=== PATIENT | female | born 1990 | race Caucasian/White ===

== ENCOUNTER 2017-01-11 06:37 | Inpatient (IN) | payer OTHER ==
[~2017-01-11] VITALS: Ht 170.2 cm; Wt 85.1 kg
--- NOTE | ~2017-01-11 | OR ---
PATIENT'S NAME: GERALDINE CUMMINGS [facility] AGE: 26 Y [address] ROOM: [place] [id number] LOCATION: BS ADMIT DATE: 01/11/2017 OR/Procedure Report DISCHARGE DATE: FAMILY PHYSICIAN: PHYSICIAN, NO ATTENDING PHYSICIAN: Rashi Marti SURGEON: Rashi Marti MD DIRECTOR GAME: None. DATE OF PROCEDURE: 01/11/2017 PREOPERATIVE DIAGNOSIS: Postdate intrauterine , successful induction of labor. POSTOPERATIVE DIAGNOSIS: Postdate intrauterine , successful induction of labor. PROCEDURE: Vaginal delivery, repair of perineal laceration. ANESTHESIA: Epidural. ESTIMATED BLOOD LOSS: 100 mL. CLINICAL INDICATION: Geraldine Cummings is a 26-year-old white female, 2, para 1, who is past postdates, was induced secondary to postdates. She was given Pitocin and labor epidural and artificial rupture of membranes. She would attain complete cervical dilatation and push effectively. FINDINGS: Delivery of a viable 7-pound 8-ounce male infant, score 10 at 1 minute and 10 at 5 minutes. umbilical, arterial cord blood gas is pending at the time of dictation. TECHNICAL PROCEDURES: The patient was left in the Labor and Delivery room, prepped and draped in the usual fashion. Labor epidural was sufficient for delivery. She would deliver a viable 7-pound 8-ounce male infant over an intact perineum. There was a nuchal cord. We delivered through the nuchal cord. Following delivery, the umbilical cord was doubly clamped, the intervening segment was cut, was handed off to the mother and later the awaiting nursing services. umbilical, arterial cord blood, and venous cord blood were obtained for blood gas analysis and routine studies respectively. Placenta was delivered spontaneously intact with 3 vessels. Exploration of the cervix and vaginal sidewalls noted them to be intact with the exception of the small second-degree midline perineal laceration. This was repaired using 3-0 Vicryl suture in a fashion similar to that of an episiotomy. The patient tolerated the procedure well and remained in Labor and Delivery room in good condition as did the . PATIENT'S NAME: GERALDINE CUMMINGS [facility] AGE: 26 Y [address] ROOM: [place] [id number] LOCATION: GOBS ADMIT DATE: 01/11/2017 OR/Procedure Report DISCHARGE DATE: FAMILY PHYSICIAN: INGA BAKER ATTENDING PHYSICIAN: Rashi Marti RASHI MARTI MD DHW/modl /[id number] d: 01/12/17 0135 t: 01/19/17 0739, OPERATIVE SUMMARY
[~2017-01-11 06:37] MED LIST: LEVOTHROID (SY50 MCG PO; PRENATAL 1+1)(P1 TAB PO; TUMS200 MG PO
[2017-01-11 07:45] LABS: BASOPHIL % 0.4 %; EOSINOPHIL # 0.3 K/uL (0.0-0.5); EOSINOPHIL % 2.5 %; HEMATOCRIT 34.7 % (33.0-46.0); HEMOGLOBIN 11.9 g/dL (11.0-15.0); IMMATURE GRANULOCYTE # 0.1 K/uL (0.0-0.3); IMMATURE GRANULOCYTE % 0.5 %; LYMPHOCYTE # 1.6 K/uL (0.8-4.0); LYMPHOCYTE % 14.4 %; MCH 29.5 pg (27.0-34.0); MCHC 34.3 gm/dL (32.0-36.5); MCV 85.9 fl (83.0-98.0); MONOCYTE % 8.7 %; MPV 10.8 fl (9.4-12.4); NEUTROPHIL # (ANC) 8.1 K/uL (1.8-7.8); NEUTROPHIL % 73.5 %; NRBC % 0 /100WBC (0-0.00); PLATELET COUNT 242 K/uL (150-450); RBC 4.04 M/uL (3.50-5.00); RDW-CV 13.8 % (11.9-14.6)
[2017-01-11 20:00] LABS: BICARBONATE 23.9 mmol/L (18.0-23.0); PCO2 50 mmHg (35-45); PO2 24 mmHg (80-90)
[2017-01-12 04:13] LABS: BASOPHIL # 0.1 K/uL (0.0-0.2); BASOPHIL % 0.6 %; EOSINOPHIL # 0.3 K/uL (0.0-0.5); EOSINOPHIL % 2.4 %; HEMATOCRIT 31.1 % (33.0-46.0); HEMOGLOBIN 10.5 g/dL (11.0-15.0); IMMATURE GRANULOCYTE # 0.1 K/uL (0.0-0.3); IMMATURE GRANULOCYTE % 0.6 %; LYMPHOCYTE # 2.4 K/uL (0.8-4.0); LYMPHOCYTE % 18.8 %; MCH 29.2 pg (27.0-34.0); MCHC 33.8 gm/dL (32.0-36.5); MCV 86.6 fl (83.0-98.0); MONOCYTE # 1.3 K/uL (0.0-1.0); MONOCYTE % 10.5 %; MPV 10.8 fl (9.4-12.4); NEUTROPHIL # (ANC) 8.6 K/uL (1.8-7.8); NEUTROPHIL % 67.1 %; NRBC % 0 /100WBC (0-0.00); PLATELET COUNT 209 K/uL (150-450); RBC 3.59 M/uL (3.50-5.00); RDW-CV 13.9 % (11.9-14.6); WBC 12.7 K/uL (4.0-11.0)
[2017-01-12] MEDS ORDERED: PERCOCET 5-3251 EACH PO (16:53)
== END 2017-01-12 21:35 | disposition disaster alternative care site (69) | DRG 775 ==
LOC: GOBM → GOBS 06:37 → GOBM 06:38 → GOBS 18:41
PROVIDERS: ADMIT Obstetrics & Gynecology
PROC: 3E0P7GC Introduction of Other Therapeutic Substance into Female Reproductive, Via Natural or Artificial Opening (ICD-10-PCS; principal; 2017-01-11)
PROC: 10E0XZZ Delivery of Products of Conception, External Approach (ICD-10-PCS; principal; 2017-01-11)
PROC: 3E033VJ Introduction of Other Hormone into Peripheral Vein, Percutaneous Approach (ICD-10-PCS; principal; 2017-01-11)
PROC: 10907ZC Drainage of Amniotic Fluid, Therapeutic from Products of Conception, Via Natural or Artificial Opening (ICD-10-PCS; principal; 2017-01-11)
PROC: 0KQM0ZZ Repair Perineum Muscle, Open Approach (ICD-10-PCS; principal; 2017-01-11)
DX: O48.0 Post-term pregnancy (principal); E03.9 Hypothyroidism, unspecified; O70.1 Second degree perineal laceration during delivery; O69.81X0 Labor and delivery complicated by cord around neck, without compression, not applicable or unspecified; O99.284 Endocrine, nutritional and metabolic diseases complicating childbirth; Z3A.40 40 weeks gestation of pregnancy; Z37.0 Single live birth
CPT/HCPCS: J2001; J2590; J3010; J7120